=== PATIENT | female | born 2000 | race Caucasian/White ===

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

== ENCOUNTER 2021-01-28 07:22 | Emergency (ER) | payer OTHER ==
[~2021-01-28] VITALS: Ht 160 cm; Wt 62.6 kg
[2021-01-28] MEDS ORDERED: MONDOXYNE NL100 MG PO (08:46)
[2021-01-28] MEDS ORDERED: Norco 5-325 Ta1 EACH PO (08:46)
[2021-02-20] MEDS ORDERED: SULFAMETHOXAZO1 EAC1 PO (11:19)
[2021-02-20] MEDS ORDERED: OXYC5 PO (11:20)
== END 2021-01-28 09:00 | disposition home or self-care (01) ==
LOC: ER 07:22
DX: N75.1 Abscess of Bartholin's gland (principal)
CPT/HCPCS: 56420; 99283-25; A9270

== ENCOUNTER 2021-02-24 07:11 | Day surgery (SDC) | payer OTHER ==
[~2021-02-24] VITALS: Ht 157.5 cm; Wt 63.2 kg
[~2021-02-24 07:11] MED LIST changes: +MONDOXYNE NL100 MG PO; +Norco 5-325 Ta1 EACH PO; +OXYC5 PO; +SULFAMETHOXAZO1 EAC1 PO
--- NOTE | 2021-02-24 11:16 | NUR ---
Discharge instructions reviewed with patient. Patient verbalizes understanding. Copy given to patient to take home. Patient States Post-Procedure ride home has been arranged. Discharged via wheelchair to private car for ride home. PT GIVEN A PERIPAD AND MESH UNDERWARE SCANT VAGINAL DRAINAGE NOTED
== END 2021-02-24 23:15 | disposition home or self-care (01) ==
LOC: ORD 07:11 → ORSCMMR 07:11 → ORD 08:45
DX: N75.0 Cyst of Bartholin's gland (principal); Z79.899 Other long term (current) drug therapy
CPT/HCPCS: 88305; A9270; J1100; J1885; J2250; J2405; J2704; J3010; J7120

== ENCOUNTER → 2021-04-04 | Outpatient (CLI) | payer OTHER | END | disposition home or self-care (01) | LOC: LAB SHORT 11:42 → LAB 11:42 | PROVIDERS: Advanced Practice Midwife | DX: Z01.419 Encounter for gynecological examination (general) (routine) without abnormal findings (principal) | CPT/HCPCS: G0123 ==

== ENCOUNTER 2022-05-08 19:09 | Emergency (ER) | payer OTHER ==
[~2022-05-08] VITALS: Ht 160 cm; Wt 63.5 kg
== END 2022-05-08 19:36 | disposition home or self-care (01) ==
LOC: ER 19:09
DX: N75.0 Cyst of Bartholin's gland (principal)
CPT/HCPCS: A9270

== ENCOUNTER → 2022-07-21 | Outpatient (CLI) | payer OTHER ==
[2022-07-22 10:10] LABS: Candida species (DNA Probe) Negative (NEGATIVE); G. vaginalis (DNA Probe) Positive (NEGATIVE); T. vaginalis (DNA Probe) Negative (NEGATIVE)
== END | disposition home or self-care (01) ==
LOC: LAB SHORT 14:59 → LAB 14:59
PROVIDERS: Advanced Practice Midwife
DX: N76.0 Acute vaginitis (principal)
CPT/HCPCS: 87480; 87510; 87660

== ENCOUNTER 2022-08-14 18:25 | Emergency (ER) | payer OTHER ==
[~2022-08-14] VITALS: Ht 157.5 cm; Wt 60.3 kg
== END 2022-08-14 19:42 | disposition home or self-care (01) ==
LOC: ER 18:25
DX: J10.1 Influenza due to other identified influenza virus with other respiratory manifestations (principal)
CPT/HCPCS: J1885

== ENCOUNTER → 2022-12-30 | Outpatient (CLI) | payer OTHER ==
[2022-12-31 09:24] LABS: Candida species (DNA Probe) Negative (NEGATIVE); G. vaginalis (DNA Probe) Positive (NEGATIVE); T. vaginalis (DNA Probe) Negative (NEGATIVE)
== END | disposition home or self-care (01) ==
LOC: LAB SHORT 15:45
PROVIDERS: Advanced Practice Midwife
DX: R10.2 Pelvic and perineal pain (principal)
CPT/HCPCS: 87480; 87510; 87660

== ENCOUNTER → 2023-04-07 | Outpatient (CLI) | payer OTHER ==
[~2023-04-07] MED LIST changes: +Percocet 5-3251 EACH PO
== END ==
LOC: LAB SHORT 13:34 → LAB 13:34
PROVIDERS: Obstetrics & Gynecology
DX: Z01.419 Encounter for gynecological examination (general) (routine) without abnormal findings (principal)
CPT/HCPCS: G0145

== ENCOUNTER 2024-10-22 18:16 | Emergency (ER) | payer OTHER ==
[~2024-10-22] VITALS: Ht 162.6 cm; Wt 59.0 kg
[2024-10-22 18:43] VITALS: BP 126/67
== END 2024-10-22 22:09 | disposition home or self-care (01) ==
LOC: ER 18:16
DX: S01.21XA Laceration without foreign body of nose, initial encounter (principal); W01.0XXA Fall on same level from slipping, tripping and stumbling without subsequent striking against object, initial encounter
CPT/HCPCS: 99283

== ENCOUNTER 2024-11-21 21:09 | Emergency (ER) | payer OTHER ==
[~2024-11-21] VITALS: Ht 160 cm; Wt 64.4 kg
[2024-11-21 21:57] LABS: BASOPHILS ABSOLUTE AUTO 0.02 K/mm3 (0.00-0.23); BASOPHILS PERCENT AUTO 0 % (0-2); EOSINOPHILS ABSOLUTE AUTO 0.05 K/mm3 (0.00-0.68); EOSINOPHILS PERCENT AUTO 0 % (0-6); Hematocrit 35.5 % (33.0-51.0); Hemoglobin 11.8 g/dL (11.5-16.0); IMMATURE GRAN ABSOLUTE AUTO 0.03 K/mm3 (0.00-0.10); IMMATURE GRAN PERCENT AUTO 0 % (0-1); LYMPHOCYTES ABSOLUTE AUTO 2.16 K/mm3 (0.84-5.20); LYMPHOCYTES PERCENT AUTO 19 % (21-46); MONOCYTES ABSOLUTE AUTO 0.98 K/mm3 (0.16-1.47); MONOCYTES PERCENT AUTO 9 % (4-13); Mean Corpuscular HGB 30.6 pg (26.0-34.0); Mean Corpuscular HGB Conc 33.2 g/dL (31.5-36.5); Mean Corpuscular Volume 92 fL (80-100); Mean Platelet Volume 10.6 fL (9.1-12.4); NEUTROPHILS ABSOLUTE AUTO 8.03 K/mm3 (1.96-9.15); NEUTROPHILS PERCENT AUTO 71 % (41-73); Platelet Count 188 K/mm3 (150-400); RDW Coefficient Variation 13.5 % (11.7-14.2); RDW Standard Deviation 45.8 fL (35.1-46.3); Red Blood Cell Count 3.85 M/mm3 (3.80-5.20); White Blood Cell Count 11.27 K/mm3 (4.00-11.30)
[2024-11-21 22:18] LABS: Albumin, Blood 3.9 g/dL (3.4-5.0); Albumin/Globulin Ratio 1.1 (0.8-1.8); Bilirubin, Total 0.3 mg/dL (0.1-1.0); Bun/Creatinine Ratio 16.8 (12.0-20.0); Calcium, Blood 8.8 mg/dL (8.5-10.1); Creatinine, Blood 0.65 mg/dL (0.40-1.00); Globulin, Blood 3.7 g/dL (2.2-4.0); Potassium, Blood 3.7 mmol/L (3.5-5.5); Total Protein, Blood 7.6 g/dL (6.4-8.2)
[2024-11-21 22:35] LABS: Source, Urine Clean Catch
[2024-11-21 22:43] LABS: Bilirubin, Urine Neg (Neg); Blood, Urine Neg (Neg); Glucose Qualitative, Urine Neg (Neg); Ketones, Urine Neg (Neg); Leukocyte Esterase, Urine Neg (Neg); Nitrite, Urine Neg (Neg); Protein, Urine Neg (Neg); Urobilinogen, Urine NORM (Normal)
[2024-11-21 22:54] LABS: Appearance, Urine Clear (Clear); Color, Urine Pale Yellow (P-Yellow)
[2024-11-21] MEDS ORDERED: Ketorolac Tromethamine 15mg Vial IV ONE (23:05)
[2024-11-22 00:02] VITALS: BP 99/58
== END 2024-11-22 00:02 | disposition home or self-care (01) ==
LOC: ER 21:09
PROVIDERS: Physician Assistant
DX: N94.0 Mittelschmerz (principal)
CPT/HCPCS: 76830; 76856; 80053; 81003; 84703; 85025; 96374; 99284-25; J1885

== ENCOUNTER → 2025-07-24 | Outpatient (CLI) | payer OTHER ==
[2025-07-24 16:34] LABS: Candida Group, PCR NOT DETECTED (NOT DETECT); Candida glabrata-krusei, PCR NOT DETECTED (NOT DETECT)
[2025-07-24 17:04] LABS: Bacterial Vaginosis PCR Positive (NEGATIVE)
== END ==
LOC: LAB 12:21 → LAB SHORT 12:21
PROVIDERS: Obstetrics & Gynecology
DX: N76.0 Acute vaginitis (principal)
CPT/HCPCS: 81515

== ENCOUNTER 2025-07-25 09:01 | Day surgery (SDC) | payer OTHER | END 2025-07-25 12:40 | disposition home or self-care (01) | LOC: ORSCMMR 09:01 | PROC: 0U9MXZZ Drainage of Vulva, External Approach (ICD-10-PCS; principal; 2025-07-25) | DX: N76.4 Abscess of vulva (principal); F17.210 Nicotine dependence, cigarettes, uncomplicated ==